=== PATIENT | female | born 1995 | race Caucasian/White ===

== ENCOUNTER 2018-06-09 04:09 | Emergency (ER) | payer OTHER ==
[~2018-06-09] VITALS: Ht 170.2 cm; Wt 63.5 kg
[2018-06-09 04:23] VITALS: BP 117/71
--- NOTE | 2018-06-09 04:37 | NUR ---
TECH AT BEDSIDE FOR EKG
== END 2018-06-09 05:06 | disposition home or self-care (01) ==
LOC: ER 04:13
DX: S00.81XA Abrasion of other part of head, initial encounter (principal); R55 Syncope and collapse; R00.1 Bradycardia, unspecified; W18.09XA Striking against other object with subsequent fall, initial encounter; Y93.89 Activity, other specified; Y92.89 Other specified places as the place of occurrence of the external cause; Y99.8 Other external cause status
CPT/HCPCS: 93005; 99283; A4606; A6402